=== PATIENT | male | born 1955 | race Caucasian/White ===

== ENCOUNTER 2017-01-30 11:17 | Emergency (ER) | payer OTHER ==
[~2017-01-30] VITALS: Ht 185.4 cm; Wt 93.8 kg
[2017-01-30] MEDS ORDERED: PERCOCET 5/31 TABLET PO (13:48)
[2017-01-30 14:03] VITALS: BP 128/80
== END 2017-01-30 14:07 | disposition home or self-care (01) ==
LOC: EME 11:17
PROC: 2W3CX1Z Immobilization of Right Lower Arm using Splint (ICD-10-PCS; principal; 2017-01-30)
DX: S52.501A Unspecified fracture of the lower end of right radius, initial encounter for closed fracture (principal); W17.89XA Other fall from one level to another, initial encounter
CPT/HCPCS: 73110; 73130; 99281; 99284